=== PATIENT | female | born 1990 | race Asian ===

== ENCOUNTER 2025-01-06 15:05 | Outpatient (CLI) | payer OTHER, SELFPAY ==
--- NOTE | 2025-01-06 11:39 | USR_ITS ---
PROCEDURE INFORMATION: Exam: US , Limited Exam date and time: 01/06/2025 11:39 AM Age: 34 years old Clinical indication: Screening exam; Routine US, uterus; Additional info: 22 weeks gestation of TECHNIQUE: Imaging protocol: Real-time ultrasound of the maternal uterus with image documentation. Exam focused on the clinical indication. COMPARISON: No relevant prior studies available. FINDINGS: Gestation: Transabdominal/pelvic scanning demonstrates evidence of single intrauterine gestation in cephalic position. heart rate: heart rate measured at 153 bpm. Placenta: Placenta appears mostly anterior. No placenta previa demonstrated. Amniotic fluid (Qualitative): Amount of amniotic fluid appears within normal subjectively. ANATOMY: cerebellum: cerebellum unremarkable. lateral ventricles: Lateral ventricles brain unremarkable. cisterna magna: cisterna magna unremarkable. heart four-chamber view, heart size and position: Visualized portions four-chamber view heart, outflow tracts heart unremarkable. kidneys: kidneys unremarkable. stomach: stomach unremarkable. urinary bladder: urinary bladder unremarkable. spine: spine unremarkable. Umbilical cord and insertion: cord insertion site unremarkable. three-vessel umbilical cord unremarkable. BIOMETRY: Estimated due date (AUA): Composite sonographic measurements obtained suggest ultrasound age 24 weeks 6 days with ultrasound PATRICIA 04/22/2025. Estimated weight: Estimated weight is 736 g +/-107 g or about 1 lb 10 oz, 50.1%. Biparietal diameter (BPD): BPD 6.08 cm corresponding to gestational age 24 weeks 5 days, 48.8% Head circumference (HC): HC 22.95 cm corresponding to 25 weeks 0 days, 45.2% Abdominal circumference (AC): AC 20.30 corresponding to 24 weeks 6 days, 51.9% Femur length (FL): FL 4.44 cm corresponding to 24 weeks 4 days, 38.3% MATERNAL: Cervix: Cervix measured at 3.18 cm length with initial transabdominal/transpelvic scanning. Cervix measured again at 3.87 cm length, 3.70 cm length with endovaginal scanning, and also 3.66 cm length (with pressure/Valsalva) with endovaginal scanning. US/US OB >=14 wk fetus w transvag IMPRESSION: Single intrauterine gestation in cephalic position. Sonographic measurements obtained suggest ultrasound age 24 weeks 6 days with ultrasound PATRICIA 04/22/2025.
== END 2025-01-06 15:06 | disposition home or self-care (01) ==
LOC: RADOUTREAD 15:09
PROVIDERS: Visit Provider Family Medicine
DX: O26.892 Other specified pregnancy related conditions, second trimester (principal); Z3A.24 24 weeks gestation of pregnancy

== ENCOUNTER 2025-02-25 14:01 | Outpatient (CLI) | payer OTHER, SELFPAY ==
[2025-02-25] VITALS (8 sets, daily range): BP systolic 106–116; BP diastolic 69–78; PULSE 96–109; RESP 18; BMI 27.5
[2025-02-25 15:07] LABS: Glucose Urine UA Negative (Normal); Nitrate Urine Negative (Negative); Specific Gravity, Urine 1.022 (1.005-1.030)
== END 2025-02-25 15:42 | disposition home or self-care (01) ==
LOC: OPOB 14:06 → OBGYN 14:07
PROVIDERS: Visit Provider Family Medicine
DX: O26.899 Other specified pregnancy related conditions, unspecified trimester (principal); Z3A.00 Weeks of gestation of pregnancy not specified; R25.2 Cramp and spasm
CPT/HCPCS: 59025; 81001; 99211

== ENCOUNTER 2025-04-25 09:00 | Inpatient (IN) | payer OTHER, SELFPAY ==
[2025-02-25 15:33] VITALS: RESP 18
[2025-04-25] VITALS (75 sets, daily range): BP systolic 95–171; BP diastolic 49–117; PULSE 78–144; RESP 16–18; TEMP 35.7–37.9; O2SAT 97–100; BMI 29.2
[2025-04-25] MEDS: oxytocin 30 UNIT/500 ML BAG IV (10:07)
[2025-04-25 10:09] LABS: Hematocrit 31.6 % (36-47); Hemoglobin 9.50 g/dL (11.27-16.99); Mean Corpuscular HGB Conc 30.1 g/dL (30-55); Mean Corpuscular Hemoglobin 23.2 pg (27-33); Mean Corpuscular Volume 77.1 fl (85-98); Nucleated Red Blood Cells % 0 %; Platelet Count 263 10^3/cmm (157-399); Red Blood Count 4.10 10^6/uL (3.85-5.65); White Blood Count 9.95 10^3/uL (3.29-11.43)
[2025-04-25] MEDS: fentaNYL 50 mcg/mL INJ 2mL IVP (10:43)
[2025-04-25] MEDS: ROPivacaine premix 200 MG/100 ML PREMIX 10 MG EPIDURAL (12:15)
--- NOTE | 2025-04-25 12:17 | ANES.PREANE2 ---
Pre-Anesthetic Assessment Height/Weight: Height 5 ft Weight 150 lb Temp Pulse Resp BP Pulse Ox O2 Del Method 97.0 F L 91 18 121/74 99 Room Air 04/25/25 10:10 04/25/25 12:13 04/25/25 10:43 04/25/25 12:13 04/25/25 12:11 04/25/25 10:10 Preop Diagnosis: IUP Was Beta Antonia taken within 24 hours: N/A Was Clonidine taken within 24 hours: N/A Social No alcohol and No tobacco Exam alert, oriented x 3, clear to auscultation bilaterally and regular rate & rhythm Airway Submandibular: within normal limits Cervical ROM: within normal limits Mallampati: Class III Dentition: full Anesthetic Plan ASA status: 2 Anesthesia: Regional (specify below) Other: G2, P0 here for active labor requesting epidural Denies any issues during Denies any cardiac or pulmonary problems Labs reviewed acceptable for procedure today Plan for routine epidural placement Medications/Allergies Home Medications ?Medication ?Instructions ?Recorded ?Confirmed ?Last Taken ?Type No Known Home Medications 04/25/25 04/25/25 Unknown History Allergies Allergy/AdvReac Type Severity Reaction Status Date / Time No Known Allergies Allergy Verified 04/25/25 11:09 Current Medications Generic Name Dose Route Start Last Admin Trade Name Freq PRN Reason Stop Dose Admin Fentanyl 25 - 100 mcg 04/25/25 09:09 04/25/25 10:43 Fentanyl 50 Mcg/Ml Inj 2ml IVP 25 mcg Q1H PRN Administration SEVERE PAIN Dextrose/Lactated Ringer's 1,000 mls @ 125 mls/hr 04/25/25 09:15 04/25/25 10:07 Dextrose 5%-Lactated Ringers IV 125 mls/hr .Q8H BRIANNA Administration Oxytocin 30 unit in 500 mls @ 2 mls/hr 04/25/25 09:15 04/25/25 10:43 Pitocin IV 0 milliunit/min .Q24H BRIANNA 0 mls/hr Protocol Titration 2 MILLIUNIT/MIN Lactated Ringer's 1,000 mls @ 999 mls/hr 04/25/25 10:33 04/25/25 11:43 Lactated Ringers IV 500 mls/hr .Q1H1M PRN Administration See label comments Ropivacaine 200 mg in 100 mls @ 10 mls/hr 04/25/25 10:45 04/25/25 12:15 Naropin Premix EPIDURAL 10 mls/hr .Q10H BRIANNA Administration PFSH Anesthesia Female Reproductive History : 2 Data Anesthesia 04/25/25 09:30 Short CBC 04/25/25 Range/Units 09:30 WBC 9.95 (3.29-11.43) 10^3/uL Hgb 9.50 L (11.27-16.99) g/dL Hct 31.6 L (36-47) % MCV 77.1 L (85-98) fl Plt Count 263 (157-399) 10^3/cmm Neut % (Auto) 71.8 % Neut # (Auto) 7.14 (1.8-7.7) 10^3/uL Blood Bank 04/25/25 09:30 Blood Type O Positive Rho(D) Type Rh positive Antibody Screen Negative
--- NOTE | 2025-04-25 12:18 | ANES.PROC ---
Anesthesia Procedures Procedure/Date: 04/25/25 Epidural: Time Out Performed: Yes Consents Signed: Procedure Consent Consent: requested by attending/covering physician and from patient Lumbar Level: L3-L4 Epidural position: sitting Additional Comments: CSC performed. ChloraPrep was used to prep the skin. 1% lidocaine was used to numb the skin. 18-gauge epidural needle was then introduced until [id number] was achieved around 5 cm. A 27-gauge spinal needle was then introduced into the intrathecal space. 1 cc of 0.25% bupivacaine was then injected into the spinal canal. Spinal needle was then removed and epidural catheter was threaded into the epidural space and left at 13 cm to the skin. Sterile dressing was applied. Patient tolerated procedure well. 0.2% ropivacaine set at 10 mL/h
[2025-04-25] MEDS: ondansetron 2 mg/ML SDV 2 mL 4 MG IVP (13:11)
[2025-04-25] MEDS: metoclopramide 5 mg/mL SDV 2 mL 10 MG IV (15:13)
--- NOTE | 2025-04-25 15:18 | PC.NURSE ---
Pt c/o feeling severe pain with contractions even after increasing cont rate and utilizing bolus. MARY ANN May called and coming in to assess.
--- NOTE | 2025-04-25 15:28 | P.ANES_ITS ---
Anesthesia Procedures Procedure/Date: 04/25/25 PIPELINE EXECUTIVE called for increased pain in belly with cxt. epidural bolused with 100mcf fent. and 5ml 2% lido w/epi. at 1526. no pain with next cxt.
[2025-04-25] MEDS: ROPivacaine premix 200 MG/100 ML PREMIX 13 MG EPIDURAL (17:25)
--- NOTE | 2025-04-25 19:06 | PM.OPHPUD ---
Labor & Delivery H&P Update Date of Procedure: April 25, 2025 Date H&P Performed: 04/22/25 Admission Diagnosis: IUP at 40 weeks 3 days gestation Active labor Primary indication for procedure: Expectant management of labor and delivery Other information: Patient was presenting to labor and delivery for a scheduled postdate induction but was found to be in active labor at 4 cm dilated and 80% effaced.
--- NOTE | 2025-04-25 19:08 | P.PCNOB_ITS ---
Delivery Note: Date of delivery: April 25, 2025 Procedure: Normal spontaneous vaginal delivery Estimated blood loss (mL): 300 Pre-Delivery Course: The patient was a transfer of care to [facility]. There were no complications during the labs: Blood type O+ antibody negative, hepatitis B nonreactive, hepatitis C nonreactive, HIV nonreactive, rubella unknown, GC chlamydia negative, RPR nonreactive, UDS negative, Q lorena low risk, she passed her glucose tolerance test, she was GBS negative Delivery: This is a 34-year-old -1-0-0 at 40 weeks 3 days gestation who presented to labor and delivery in active labor. She received an epidural for pain management. Her labor was augmented using Pitocin. She had spontaneous rupture of membranes with clear fluid. Once she was complete she only had to push for about 15 minutes to have a normal spontaneous vaginal delivery of a viable male infant weight 3540 g, 7 pounds 13 ounces, Apgars 9 and 9 over an intact perineum. The infant was suctioned at delivery and placed on the mother's chest. The cord was clamped and cut. The placenta was delivered grossly intact and normal to inspection. There was a partial third-degree laceration that was sutured using interrupted 3-0 Vicryl. The second-degree laceration and skin were then sutured using 3-0 chromic in a running fashion. Mother and were doing well after delivery. History History History 2 Term 0 1 Miscarriages/Ectopic 0 Living Children 0 Other History: Around 2017, the patient had a delivery at 27 weeks gestation of a male infant that did not survive. Father of the baby was different from current . Details are lacking, but the patient's current describes it as a poverty situation in [place]. A&P Assessment and plan 1. Normal spontaneous vaginal delivery: PDMP PDMP Reviewed: Not Reviewed Coding Level of Care Code Acute Code for Chg Fwd Diagnoses Normal spontaneous vaginal delivery O80
[2025-04-25] MEDS: tranexamic acid 1,000 MG/100 ML PREMIX 600 MG IV (20:33)
[2025-04-25] MEDS: benzocaine-menthol 78 gm Canister 1 SPRAY TOPICAL (23:31)
[2025-04-26] VITALS (16 sets, daily range): BP systolic 87–105; BP diastolic 55–66; PULSE 78–103; RESP 14–17; TEMP 36.4–37.3; O2SAT 95–99
[2025-04-26] MEDS: HYDROcodone-acetaminophen 5-325 mg Tablet PO ×2 (06:12→13:03)
[2025-04-26 08:47] LABS: Mean Corpuscular HGB Conc 30.7 g/dL (30-55); Mean Corpuscular Hemoglobin 24.0 pg (27-33); Mean Corpuscular Volume 77.9 fl (85-98); Platelet Count 194 10^3/cmm (157-399); Red Blood Count 2.63 10^6/uL (3.85-5.65); White Blood Count 18.91 10^3/uL (3.29-11.43)
[2025-04-26] MEDS: PRENATAL VIT NO.130/IRON/FOLIC 1 EACH TABLET PO (08:51)
[2025-04-26 08:57] LABS: Hemoglobin 6.30 g/dL (11.27-16.99)
[2025-04-26 08:58] LABS: Hematocrit 20.5 % (36-47)
--- NOTE | 2025-04-26 09:04 | PC.NURSE ---
Dr Hunt notified of critical H&H. reported vitals, maternal activity, bleeding assessment. No new orders at this time.
[2025-04-26] MEDS: lactulose oral liq 20 gm/30 mL UDC 10 GM PO (09:37)
--- NOTE | 2025-04-26 11:14 | P.PN_ITS ---
Subjective 2 Subjective: day 0-1 She is doing well, ambulating and tolerating a regular diet. She does complain of cramping but it seems as expected Vitals/I&O/Wt Last Vital Signs Temp 98.0 F 04/26/25 08:53 Pulse 98 04/26/25 08:53 Resp 16 04/26/25 08:53 BP 105/64 04/26/25 08:53 Pulse Ox 97 04/26/25 08:53 O2 Del Method Room Air 04/26/25 08:53 04/25/25 04/26/25 04/26/25 22:59 06:59 14:59 Intake Total 1133.667 / 3161.867 Output Total 500 / 500 Balance 633.667 / 2661.867 Weight last 48 hrs Weight 68.039 kg Physical Exam 2 Urinary Catheter Management: Montejo Latex: Cath Placed During This Visit: yes, but has since been removed by the nurse Reason for Continuing Indwelling Catheter: Other Urinary Catheter Date of Insertion: 04/25/25 Urinary Catheter Time of Insertion: 12:40 Date Urinary Catheter Removed: 04/25/25 Time Urinary Catheter Discontinued: 17:50 Data 04/26/25 06:10 A&P Assessment and plan 1. Normal spontaneous vaginal delivery: Routine care 2. hemorrhage: In the hours after delivery nursing noted that her uterus would become atonic and she would have some excessive bleeding. She was treated with transexemic acid and Cytotec. Her starting hemoglobin was low at 9.5 and she has dropped to 6.3 but is asymptomatic currently. Continue inpatient monitoring PDMP PDMP Reviewed: Not Reviewed Attestations 2 Medical Necessity Statement*: Routine care Coding Level of Care Code Acute Code for Chg Fwd Diagnoses Normal spontaneous vaginal delivery O80 hemorrhage O72.1
[2025-04-27 04:41] VITALS: BP 103/66; PULSE 92; RESP 16; TEMP 36.6; O2SAT 98
[2025-04-27 04:47] LABS: Hematocrit 24.8 % (36-47); Hemoglobin 7.60 g/dL (11.27-16.99); Mean Corpuscular HGB Conc 30.6 g/dL (30-55); Mean Corpuscular Hemoglobin 24.0 pg (27-33); Mean Corpuscular Volume 78.2 fl (85-98); Platelet Count 208 10^3/cmm (157-399); Red Blood Count 3.17 10^6/uL (3.85-5.65); White Blood Count 13.11 10^3/uL (3.29-11.43)
[2025-04-27] MEDS: HYDROcodone-acetaminophen 5-325 mg Tablet PO (06:18)
[2025-04-27 10:00] VITALS: BP 110/65; PULSE 84; RESP 16; TEMP 36.6
[2025-04-27] MEDS: PRENATAL VIT NO.130/IRON/FOLIC 1 EACH TABLET PO (10:11)
--- NOTE | 2025-04-27 12:21 | P.DS_ITS ---
Discharge Providers Date of Admission: 04/25/25 09:00 Date of Discharge: April 27, 2025 Attending Provider at Admission: Sarai Hunt MD Attending Provider at Discharge: Sarai Hunt MD Diagnoses at Discharge Discharge Diagnosis 1. Normal spontaneous vaginal delivery: 2. hemorrhage: Reason for Visit Reason for Visit: IOL Hospital Course Hospital Course This is a 34-year-old G2 now P1 who had a normal spontaneous vaginal delivery of a viable male . She was symptomatic with a hemoglobin of 6.3 so she received 1 unit of packed red blood cells. She is ambulating, tolerating a regular diet, has good pain control and is comfortable with discharge home. Physical Exam Narrative: Alert and oriented, heart regular rate and rhythm, lungs clear to auscultation bilaterally, abdomen is soft and nontender, fundus is firm, extremities have 1+ edema but no calf tenderness Urinary Catheter Management: Montejo Latex: Cath Placed During This Visit: yes, but has since been removed by the nurse Reason for Continuing Indwelling Catheter: Other Urinary Catheter Date of Insertion: 04/25/25 Urinary Catheter Time of Insertion: 12:40 Date Urinary Catheter Removed: 04/25/25 Time Urinary Catheter Discontinued: 17:50 Discharge Data Studies Completed and Pending Pending at discharge Category Date Time Status High Risk PP Hemorrhage Stat Lab 04/25/25 09:30 Received PRBC [Leukocyte Reduced RBC] Routine Lab 04/26/25 13:16 Results Type and Screen Routine Lab 04/25/25 09:30 Results Laboratory Results WBC 13.11 10^3/uL (3.29-11.43) H 04/27/25 04:40 RBC 3.17 10^6/uL (3.85-5.65) L 04/27/25 04:40 Hgb 7.60 g/dL (11.27-16.99) L 04/27/25 04:40 Hct 24.8 % (36-47) L 04/27/25 04:40 MCV 78.2 fl (85-98) L 04/27/25 04:40 MCH 24.0 pg (27-33) L 04/27/25 04:40 MCHC 30.6 g/dL (30-55) 04/27/25 04:40 RDW 15.9 % (12.1-15.1) H 04/27/25 04:40 Plt Count 208 10^3/cmm (157-399) 04/27/25 04:40 MPV 11.0 fL (7.4-10.4) H 04/27/25 04:40 Neut % (Auto) 71.8 % 04/25/25 09:30 Lymph % (Auto) 18.6 % 04/25/25 09:30 [place] % (Auto) 7.1 % 04/25/25 09:30 Eos % (Auto) 0.7 % 04/25/25 09:30 Baso % (Auto) 0.4 % 04/25/25 09:30 Neut # (Auto) 7.14 10^3/uL (1.8-7.7) 04/25/25 09:30 Lymph # (Auto) 1.9 10^3/uL (0.8-4.8) 04/25/25 09:30 [place] # (Auto) 0.7 10^3/uL (0.2-0.9) 04/25/25 09:30 Eos # (Auto) 0.1 10^3/uL (0.0-0.8) 04/25/25 09:30 Baso # (Auto) 0.0 10^3/uL (0.0-0.1) 04/25/25 09:30 Nucleated RBC % (auto) 0 % 04/25/25 09:30 Nucleated RBCs # 0.0 /100WBC 04/25/25 09:30 Blood Type O Positive 04/25/25 09:30 Rho(D) Type Rh positive 04/25/25 09:30 Antibody Screen Negative 04/25/25 09:30 Crossmatch See Detail 04/25/25 09:30 Vitals Last Vital Signs Temp 97.8 F 04/27/25 10:00 Pulse 84 04/27/25 10:00 Resp 16 04/27/25 10:00 BP 110/65 04/27/25 10:00 Pulse Ox 98 04/27/25 04:41 O2 Del Method Room Air 04/27/25 04:41 Discharge Plan Discharge Patient Disposition: Home Condition: Stable Prescriptions: New ibuprofen 800 mg Tablet 800 mg PO TID PRN (Reason: Abdominal Discomfort) Qty: 40 0RF docusate sodium 100 mg Capsule 100 mg PO BID Qty: 60 0RF Discharge Order = DC NOW: Discharge Order (Routine); Ordered 04/27/25 Ordered By: Sarai Hunt Referrals: Sarai Hunt MD [Physician, Family Practice] - 05/25/25 1:00 pm Discharge Diet: Usual diet Discharge Activity: Limit activity as instructed Patient Instructions: Depression (DC), Opioid Safety (DC), Preeclampsia and Eclampsia After Delivery (GEN), Hemorrhage (DC), OB Discharge Report, OB Food/Drug Interaction Guide, OB Care at Home, Opioid Safety, OB Vaginal Deliveries, Patient Portal & Marla Instructions, Abnormal Bleeding Activity Restrictions/Additional Instructions: Nothing per vagina for 6 weeks Discharge Attestations Time Spent in Discharge Care*: other Quality Metrics Clinical Quality Measures [ No reported AMI, CVA or VTE this stay] Coding Level of Care Code Acute Code for Chg Fwd Diagnoses Normal spontaneous vaginal delivery O80 hemorrhage O72.1
[2025-04-27 13:39] VITALS: BP 105/64; PULSE 84; RESP 15; TEMP 36.7; O2SAT 98
[2025-04-27 17:50] LABS: High Risk PP Hemorrhage BBK Notified
== END 2025-04-27 13:30 | disposition home or self-care (01) | DRG 768 ==
LOC: OPOB 09:01 → OBGYN 09:01
PROVIDERS: Admitting Provider Family Medicine; Visit Provider Family Medicine
DX: O48.0 Post-term pregnancy (principal); Z37.0 Single live birth; O70.20 Third degree perineal laceration during delivery, unspecified; O72.1 Other immediate postpartum hemorrhage; Z3A.40 40 weeks gestation of pregnancy
CPT/HCPCS: 36415; 36430; 51702; 59025; 59409; 85025; 85027; 86850; 86900; 86920; 99211; J2405; J2590; J2765; J2795; J3010; J7120; J7121; J9999; P9016